=== PATIENT | male | born 1995 | race African-American/Black ===

== ENCOUNTER 2023-10-08 18:56 | Emergency (ER) | payer SELFPAY ==
[~2023-10-08] VITALS: Ht 180.3 cm; Wt 91.0 kg
[2023-10-08 18:59] VITALS: TEMP 98.2; O2SAT 100
[2023-10-08] MEDS ORDERED: VALA10002 MT (19:22)
[2023-10-08 19:30] VITALS: BP 131/89; PULSE 82; RESP 18
[2023-10-08] MEDS: KETOROLAC 30MG/ML VIAL IM ONE (19:30)
[2023-10-08] MEDS: ACYCLOVIR 400 MG TABLET PO ONE (19:30)
== END 2023-10-08 20:34 | disposition home or self-care (01) ==
LOC: ER 18:56
DX: B02.9 Zoster without complications (principal); R21 Rash and other nonspecific skin eruption
CPT/HCPCS: 99283; 96372; J1885

== ENCOUNTER 2023-10-09 22:09 | Emergency (ER) | payer SELFPAY ==
[~2023-10-09] VITALS: Ht 180.3 cm; Wt 91.0 kg
[~2023-10-09 22:09] MED LIST: VALA10002 MT
[2023-10-09 22:20] VITALS: BP 137/78; PULSE 76; RESP 18; TEMP 98.7; O2SAT 99
[2023-10-09 23:01] LABS: CLARITY URINE CLEAR (CLEAR); COLOR URINE YELLOW (YELLOW); GLUCOSE URINE NEGATIVE (NEGATIVE); KETONES URINE NEGATIVE (NEGATIVE); LEUKOCYTE ESTERASE URINE NEGATIVE (NEGATIVE); NITRITE URINE NEGATIVE (NEGATIVE); OCCULT BLOOD URINE NEGATIVE (NEGATIVE); PH URINE 8.5 (4.5-8.0); PROTEIN URINE NEGATIVE (NEGATIVE); SPECIFIC GRAVITY URINE 1.014 (1.005-1.030)
[2023-10-09 23:03] LABS: HEMATOCRIT. 41.8 % (42.0-52.0); HEMOGLOBIN. 14.2 g/dL (14.0-18.0); MEAN CORPUSCULAR HEMOGLOBIN 28.9 pg (28.0-32.0); MEAN CORPUSCULAR VOLUME 84.8 fL (80.0-94.0); MEAN PLATELET VOLUME 9.2 fl (7.4-10.4); PLATELET 164 x1000/uL (130-400); RED BLOOD CELL COUNT 4.93 mill/uL (4.7-6.1); RED CELL DISTRIBUTION WIDTH 13.5 % (11.6-14.6); WHITE BLOOD COUNT 5.1 x1000/uL (4.5-11.0)
[2023-10-09 23:05] LABS: DIFFERENTIAL COMMENT 1
[2023-10-09 23:08] LABS: CHLORIDE 106 mEq/L (98-107); POTASSIUM 3.3 mEq/L (3.5-5.1); SODIUM 139 mEq/L (136-145)
[2023-10-09 23:09] LABS: CARBON DIOXIDE 26 mEq/L (21-32)
[2023-10-09 23:10] LABS: CALCIUM 10.2 mg/dL (8.7-10.4)
[2023-10-09 23:15] LABS: GLUCOSE 98 mg/dL (70-105); UREA NITROGEN BLOOD 8 mg/dL (9-23)
[2023-10-09 23:16] LABS: TROPONIN I HIGH SENSITIVITY < 4 ng/L (3.0-53)
[2023-10-09] MEDS ORDERED: ACETAMINOPHEN 325MG TABLET PO ONE (23:30)
[2023-10-09 23:31] LABS: PLATELET ESTIMATE NORMAL
== END 2023-10-09 23:58 | disposition left against medical advice (07) ==
LOC: ER 22:09
DX: R06.02 Shortness of breath (principal)
CPT/HCPCS: 36415; 71045; 80048; 81003; 84484; 85025; 93005; 99285